=== PATIENT | female | born 1995 | race Caucasian/White ===

== ENCOUNTER → 2025-01-29 | Outpatient (CLI) | payer OTHER ==
--- NOTE | 2025-01-29 16:22 | US ---
EXAMINATION TYPE: US transvaginal DATE OF EXAM: 01/29/2025 COMPARISON: NONE CLINICAL INDICATION: Female, 29 years old with history of Z87.42 HISTORY OF OTHE DISEASES OF THE [place]; Pt states diagnosed with PCOS as a teenager, having difficulty conceiving TECHNIQUE: Transvaginal (TV). Transvaginal grayscale sonographic images of the pelvis were acquired. FINDINGS: Date of LMP: 9 days ago EXAM MEASUREMENTS: Uterus: 6.6 x 3.9 x 4.2 cm Endometrial Stripe: 0.7 cm Right Ovary: 3.4 x 2.1 x 2.1 cm for a volume of 7.9 mL Left Ovary: 3.0 x 1.9 x 2.0 cm for a volume of 6.0 mL. 1. Uterus: Retroverted.r Small Nabothian cysts in cervix 2. Endometrium: wnl 3. Right Ovary: Small follicles measuring up to 8 mm. These do not have a peripheral orientation. No echogenic central stroma is seen. 4. Left Ovary: Small follicles measuring up to 7 mm. These do not have a peripheral orientation. No echogenic central stroma is seen. 5. Bilateral Adnexa: wnl 6. Posterior cul-de-sac: Very small amount of free fluid near uterine fundus IMPRESSION: 1. While multiple small follicles are present in both ovaries, the ovaries are not particularly enlar ged. There is also no peripheral orientation of the follicles within the ovary or an echogenic centra l stroma as can be seen with polycystic ovaries. 2. Retroverted uterus. 8 mm endometrial stripe thickness. 3. Trace cul-de-sac free fluid likely physiologic. [facility], , 01/29/2025 4:20 PM
== END | disposition home or self-care (01) ==
LOC: RADUSWWP 15:35
DX: N85.4 Malposition of uterus (principal); Z87.42 Personal history of other diseases of the female genital tract
CPT/HCPCS: 76830